=== PATIENT | female | born 1990 | race Hispanic/Latino ===

== ENCOUNTER 2016-05-31 18:44 | Emergency (ER) | payer OTHER ==
[~2016-05-31] VITALS: Ht 149.9 cm; Wt 60.3 kg
[~2016-05-31 18:44] MED LIST: AMPICILLIN TRI500 MG PO; BENTYL10 M1 PO; DICLEGIS DR 101 EACH PO; NAPROXEN375 M2 PO; NITROFURANTOIN100 M6 PO; VITAFOL ULTRA1 EACH PO; ZOFRAN ODT4 M1 SL
[2016-05-31 18:56] VITALS: BP 104/64
== END 2016-05-31 21:13 | disposition admitted as inpatient to this hospital (09) ==
LOC: ERH 18:44
DX: R11.10 Vomiting, unspecified (principal); R52 Pain, unspecified; Z33.1 Pregnant state, incidental

== ENCOUNTER 2016-09-21 01:13 | Observation (INO) | payer OTHER | END 2016-09-21 09:35 | disposition HSC | LOC: CBCO 01:13 → GNO 03:00 | PROVIDERS: ADMIT Specialist | DX: O47.1 False labor at or after 37 completed weeks of gestation (principal); Z3A.38 38 weeks gestation of pregnancy | CPT/HCPCS: 81003; 96360; G0378; G0463 ==

== ENCOUNTER 2016-09-24 18:50 | Inpatient (IN) | payer OTHER ==
[~2016-09-24] VITALS: Ht 149.9 cm; Wt 69.9 kg
[2016-09-24 23:52] LABS: ABSOLUTE BASOPHIL COUNT 0 /CUMM (0.0-0.2); ABSOLUTE EOSINOPHIL COUNT 0 /CUMM (0.0-0.7); ABSOLUTE GRANULOCYTE CT 14.6 /CUMM (1.4-6.5); BASOPHIL % 0.3 % (0.0-2.0); EOSINOPHIL % 0.1 % (0-5); HEMATOCRIT 33.8 % (37-47); MEAN CORPUSCULAR HGB 29.9 PG (27.0-31.0); MEAN CORPUSCULAR VOLUME 87.9 FL (81.0-99.0); PLATELET COUNT 171 /CUMM (130-400); RBC DISTRIBUTION WIDTH 12.7 % (11.5-14.5); RED BLOOD CELL CT 3.85 /CUMM (4.20-5.40); WHITE BLOOD CELL COUNT 17.6 /CUMM (4.8-10.8)
--- NOTE | 2016-09-25 10:36 | History & Physical ---
General Information and HPI MD Statement: I have seen and personally examined EDUIN SAEZ and documented this H &P. The patient is a 25 year old female at [39] weeks and [2] days gestation who presented with a chief complaint of [contractions]. Source of Information: patient, EMS Exam Limitations: no limitations History of Present Illness: Patient presents with a worsening contractions and pain. Describes feeling stronger contractions since last morning. She was checked at that point and found to be 2cm/90. She called overnight and was sent to be evaluated in L&D. At that time she was again found to be 2cm dilated. We decided to give her pain medication given that she was uncomfortable with everything contraction. She was able to rest comfortably. Otherwise patient has no other complaints. She denies any vaginal bleeding or LOF. Good FM since presentation. This IUP has been complicated by prior for failed induction and successful version performed earlier in (36wga). 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: Prior for failed induction (4cm) Medical History Neurological: NONE EENT: NONE Cardiovascular: NONE Respiratory: NONE Gastrointestinal: NONE Hepatic: NONE Renal: nephrolithiasis Musculoskeletal: NONE Psychiatric: NONE Endocrine: NONE Blood Disorders: NONE Cancer(s): 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 No Contractions: Q 5 min Patient for Induction? No Labs Blood Type & Rh: O+ Antibody Screen: neg Hct/Hgb & Platelets #1: 39.5/13.2/250 Hct/Hgb & Platelets #2: 34.0/11.5/182 Rubella: I VDRL #1: NR VDRL #2: NR HbsAg: NR HIV #1: NR HIV #2 NR 1 Hr P Group B Strep: neg Initial Ultrasound: unavailable Anatomy Ultrasound: Unavailable Genetic Testing: unknown Last 24 Hrs of Labs/Homar: Laboratory Tests 09/24/160: CBC w Diff NO MAN DIFF REQ, RBC 3.85 L, MCV 87.9, MCH 29.9, RDW 12.7, MPV 10.0, Gran % 83.0 H, Lymphocytes % 11.2 L, Monocytes % 5.4, Eosinophils % 0.1, Basophils % 0.3, Absolute Granulocytes 14.6 H, Absolute Lymphocytes 2.0, Absolute Monocytes 1.0 H, Absolute Eosinophils 0, Absolute Basophils 0, PUBS MCHC 34.0 09/24/162129: Urine Color YEL, Urine Clarity CLEAR, Urine pH 6.0, Ur Specific [place] 1.015, Urine Protein NEG, Urine Ketones NEG, Urine Nitrite NEG, Urine Bilirubin NEG, Urine Urobilinogen 1.0, Ur Leukocyte Esterase NEG, Ur Microscopic EXAM NOT REQUIRED, Urine Hemoglobin NEG, Urine Glucose NEG Assessment/Plan Assessment/Plan: 25 yo female here for contractions in setting of prior section. Patient was counseled extensively in the office regarding attempting a TOLAC which she was ok with when she initially presented. After pain medication and resting, her cervix did end up changing to 4 cm this morning. However despite contractions and time, her cervix has since not changed. She was given the option to continue to watch and see if she would change vs attempting to induce/augment with pitocin and seeing if she would continue to change or to send home and to have her return once contractions became even stronger vs going ahead with a repeat section if she does not want to continue with TOLAC (given her prior hx). She was told about the risk of potential uterine rupture given her prior C- section, though overall her risk would be low. She was also told that the risk of a successful vaginal delivery would diminish since she is not currently in active labor and would require pitocin to continue. She was also told about the risk of repeat and future risks with abdominal surgery. At this time she has opted to undergo a repeat as she would not like to proceed with a TOLAC (augmentation or not). She voiced understanding of all these risk and will proceed with surgery. Consents were reviewed. To OR when ready. Anesthesia, peds and OB notified. 2g of Ancef FRANCISCO J. As Ranked By This Provider Problem List: 1. 2. History of delivery affecting Core Measures/Miscellaneous Venous Thromboembolism VTE Risk Factors: / VTE Contraindications: No Contraindications VTE Diagnosis: No Beta Mary Is Beta Mary a Home Med? No Antibiotics Is Patient on Antibiotics? No
--- NOTE | 2016-09-25 12:38 | Operative Report ---
Operative/Inv Procedure Report Surgery Date: 09/25/16 Name of Procedure: Low transverse Section Pre-Operative Diagnosis: Prior Post-Operative Diagnosis: Post op Estimated Blood Loss: 700ml Surgeon/Safe Deposit Attendant: Surgeon - Dr. Erasto Bentley Safe Deposit Attendant - Dr. Lilia Hutson Anesthesia: Spinal Specimens: none Complications: none Condition: stable Operative Indication: 25 yo female with a history of prior section. Presented the night prior with cotnraction complaints. Did change to 4 cm, however did not progress past that and offered to be induced. Patient refused and instead desired repeat c- section. R/B/A were discussed and patient voiced understanding. Operative/Procedure Note Note: Procedure Details The patient was seen on L&D. The risks, benefits, complications, treatment options, and expected outcomes were discussed with the patient. The patient concurred with the proposed plan, giving informed consent. The site of surgery properly noted/marked. The patient was taken to Operating Room and the procedure verified as Delivery. A Time Out was held and the above information confirmed. After spinal placed by anesthesia, the patient was prepped and draped in the usual sterile manner while placed in a dorsal supine position with a left lateral tilt. A briggs catheter was also placed per nursing. Preoperative antibiotics were administered and an Allis test was performed yielding adequate anesthesia. A Pfannenstiel incision was made on the prior scar and carried down through the subcutaneous tissue to the fascia. Fascial incision was made and extended transversely. The fascia was grasped with Peter clamps and from the underlying rectus tissue superiorly and inferiorly. The peritoneum was identified, found to be free of adherent bowl and entered sharply. The muscle was from the midline with Metzenbaum scissors carefully. The peritoneum incision was then extended superiorly. No underlying bowel adhesions were noted. The vesico-uterine peritoneum was identified and noted to be high on the uterus. The bladder blade was inserted. The vesico-uterine peritoneum was incised transversely and the bladder flap was bluntly freed from the lower uterine segment. The bladder blade was reinserted to keep the bladder out of the operative field. A low transverse uterine incision was made with knife and extended by finger fracture. The amniotic sac was ruptured with hemostat and the was noted to be in cephalic (ROT) position. The female was brought to the incision and elevated out of the pelvis. The patient delivered a single viable female infant without difficulty. Infant with scores of 9/9 at one and five minutes respectively. After the umbilical cord was clamped and cut cord blood was obtained for evaluation. The placenta was removed intact and appeared normal and was removed spontaneously. The uterus was exteriorized. IU pitocin given. The uterine outline, tubes and ovaries appeared normal. The uterine incision was closed with running locked sutures of 0-Chromic. An extra figure of eight suture thrown at the left angle and in the midline. Methergine IM given for boggy lower uterine segment. Good hemostasis was observed. The uterus was returned to the abdominal cavity. Incision was reinspected and good hemostasis was noted. The abdominal cavity was irrigated to remove clots. The muscle was reapproximated low with 0-chromic in horizontal mattress fashion. The fascia was then reapproximated with running sutures of 0 Vicryl. The subcutaneous fat was irrigated and made hemostatic with bovie. The skin was reapproximated with 4-0 monocryl in running fashion. Instrument, sponge, and needle counts were correct prior the abdominal closure and at the conclusion of the case. Pt tolerated procedure well and Dr. Bentley discussed with family that pt was stable and in good condition after the procedure Findings: Normal uterus, tubes and ovaries. Female in cephalic presentation.
[2016-09-26 09:32] LABS: ABSOLUTE BASOPHIL COUNT 0 /CUMM (0.0-0.2); ABSOLUTE EOSINOPHIL COUNT 0 /CUMM (0.0-0.7); ABSOLUTE GRANULOCYTE CT 10.2 /CUMM (1.4-6.5); ABSOLUTE LYMPH COUNT 1.7 /CUMM (1.2-3.4); ABSOLUTE MONOCYTE COUNT 0.9 /CUMM (0.10-0.60); BASOPHIL % 0.3 % (0.0-2.0); EOSINOPHIL % 0.1 % (0-5); GRANULOCYTE % 79.5 % (42.2-75.2); HEMATOCRIT 31.8 % (37-47); MEAN CORPUSCULAR HGB 30.2 PG (27.0-31.0); MEAN CORPUSCULAR HGB CONC 33.8 G/DL (33.0-37.0); MEAN CORPUSCULAR VOLUME 89.6 FL (81.0-99.0); MEAN PLATELET VOLUME 10.3 FL (7.4-10.4); PLATELET COUNT 146 /CUMM (130-400); RBC DISTRIBUTION WIDTH 13.3 % (11.5-14.5); RED BLOOD CELL CT 3.55 /CUMM (4.20-5.40); WHITE BLOOD CELL COUNT 12.8 /CUMM (4.8-10.8)
--- NOTE | 2016-09-26 09:48 | PN- Post Delivery/GYN ---
Subjective Subjective: Overall doing well. Minimal pain, well controlled with PO meds. Tolerating PO with no nausea or vomiting. Do just removed. Did ambulate yesterday with no problems. Has not passed flatus, no BM. . Vaginal bleeding is stable. Review of Systems: per above Objective Last 24 Hrs of Vital Signs/I&O 97.8 70 20 102/60 97% Physical Exam: NAD RRR CTAB Abd: Hypoactive BS, expected TTP, ND. Fundus below umbilicus Incision: c/d/i Ext: Venodynes in place. Current Medications: Current Medications Sig/Donna Start time Last Medication Dose Route Stop Time Status Admin Acetaminophen 1,000 MG Q6H 09/25 1245 DC 09/26 N/A 1 UNIT IV 09/26 0659 0430 Cefazolin Sodium 2 GM ONCE ONE 09/25 1030 DC 09/25 N/A 1 UNIT IV 09/25 1059 1045 Citric Acid/Sodium 30 ML ONE TIME CBC 09/25 1030 DC 09/25 Citrate PO 09/25 1031 1018 Diphenhydramine HCl 25 MG Q6P PRN 09/25 1315 AC 09/26 IV 0015 Docusate Sodium 100 MG AT BEDTIME PRN 09/25 1245 AC PO Fentanyl Citrate 100 MCG .STK-MED ONE 09/25 1037 DC IM 09/25 1038 Ibuprofen 600 MG Q6P PRN 09/26 0900 AC PO Ketorolac 30 MG Q6 09/25 1800 AC 09/26 Tromethamine IV 0740 Ketorolac 30 MG ONE ONE 09/25 1145 DC 09/25 Tromethamine IV 09/25 1146 1200 Lactated Ringer's 1,000 ML Q8H 09/25 0045 AC 09/25 IV 2005 Methylergonovine 0.2 MG ONCE ONE 09/25 1245 DC 09/25 Maleate IM 09/25 1246 1134 Metoclopramide HCl 10 MG Q6P PRN 09/25 1315 AC IV Midazolam HCl 5 MG .STK-MED ONE 09/25 1038 DC IM 09/25 1039 Morphine Sulfate 10 MG .STK-MED ONE 09/25 1037 DC IV 09/25 1038 Naloxone HCl 0.2 MG .Q5 MIN PRN 09/25 1315 AC IV Oxycodone/ 1 TAB Q4P PRN 09/26 1000 AC 09/26 Acetaminophen PO 0840 Oxytocin 20 UNITS Q8H 09/25 1230 DC 09/25 Lactated Ringer's 1,000 ML IV 09/25 202 1229 Oxytocin 10 UNITS ONCE ONE 09/25 1230 DC 09/25 IM 09/25 1231 1122 Senna 187 MG AT BEDTIME NEED.. 09/25 1245 AC PO Last 24 Hrs of Labs/Homar: Laboratory Tests 09/26/16 0800: CBC w Diff NO MAN DIFF REQ, RBC 3.55 L, MCV 89.6, MCH 30.2, RDW 13.3, MPV 10.3, Gran % 79.5 H, Lymphocytes % 13.3 L, Monocytes % 6.8, Eosinophils % 0.1, Basophils % 0.3, Absolute Granulocytes 10.2 H, Absolute Lymphocytes 1.7, Absolute Monocytes 0.9 H, Absolute Eosinophils 0, Absolute Basophils 0, PUBS MCHC 33.8 Microbiology 09/25 1200 URINE ROUT: Urine Culture - RES Assessment/Plan Assessment/Plan 25 yo female POD#1 s/p rLTCS Overall doing well Will plan to transition from IV to PO meds Continue regular diet H/H noted this morning, expected drop from pre-procedure. Asymptomatic. Continue to monitor. Encourage ambulation Monitor vitals and voiding Encourage Problem List: 1. Postcesarean section Attending MD Review Statement Attending Statement Attending MD Statement: examined this patient, discussed with family, reviewed EMR data (avail), discussed with nursing
--- NOTE | 2016-09-27 13:04 | PN- Post Delivery/GYN ---
Subjective Subjective: NO COMPLAINTS Objective Last 24 Hrs of Vital Signs/I&O PER CHART Physical Exam: VSS AFEBRILE ABD BS NT FUNDUS FIRM NT LOCHIA MINIMAL INCISION CDI EXT -EDEMA -MELITON Assessment/Plan Assessment/Plan ASSESS S/P C/S PLAN CONT PPC
[2016-09-28] MEDS ORDERED: IBUPROFEN800 M1 PO (09:32)
[2016-09-28] MEDS ORDERED: PERCOCET 5-3251 EACH PO (09:32)
== END 2016-09-28 11:24 | DRG 540 ==
LOC: CBCO 18:50 → GNO 23:02 → LCXP 09-29 13:00
PROVIDERS: Obstetrics & Gynecology; ADMIT Specialist
PROC: 10D00Z1 Extraction of Products of Conception, Low, Open Approach (ICD-10-PCS; principal; 2016-09-25)
DX: O34.211 Maternal care for low transverse scar from previous cesarean delivery (principal); N85.8 Other specified noninflammatory disorders of uterus; Z3A.39 39 weeks gestation of pregnancy; Z37.0 Single live birth
CPT/HCPCS: 6050; GNOP; 36415; 81003; 87086; 96360; 96372; 96374; G0378; G0463; J0131; J0690; J1200; J1885; J2210; J7120

== ENCOUNTER 2016-10-27 19:17 | Emergency (ER) | payer OTHER ==
[~2016-10-27 19:17] MED LIST changes: +IBUPROFEN800 M1 PO; +PERCOCET 5-3251 EACH PO
[2016-10-27 19:32] VITALS: BP 112/75
--- NOTE | 2016-10-27 20:15 | ED GI/GU/ABDOMINAL COMPLAINT ---
History of Present Illness General Chief Complaint: Female Urogenital Problems Stated Complaint: " X1MTH AGO PAIN IN THE AREA,HAVE UTI" Source: patient Exam Limitations: no limitations Vital Signs & Intake/Output Vital Signs & Intake/Output Vital Signs Date Time Temp Pulse Resp B/P B/P Pulse O2 O2 Flow FiO2 Mean Ox Delivery Rate 10/28 1931 97.8 73 16 112/75 99 Room Air ED Intake and Output 10/28 0000 10/27 1200 Intake Total Output Total Balance Patient 135 lb Weight Weight Reported by Patient Measurement Method Allergies Coded Allergies: No Known Drug Allergies (NONE 09/26/16) Reconcile Medications Ciprofloxacin HCl (Cipro) 500 MG TABLET 1 TAB PO BID uti Ibuprofen 800 MG TABLET 800 MG PO Q6P PRN PAIN SCALE 4-6 (MODERATE) Ondansetron (Zofran Odt) 4 MG TAB.RAPDIS 1 TAB SL Q6P PRN NAUSEA/VOMITING Oxycodone HCl/Acetaminophen (Percocet 5-325 MG Tablet) 5 MG-325 MG TABLET 1 TAB PO Q4P PRN PAIN SCALE 4-6 (MODERATE) Pnv#67/Iron Ps/FA Cmb#1/Dha (Vitafol Ultra Softgel) 29 MG IRON-1 MG-200 MG CAPSULE 1 CAP PO DAILY (Reported) Triage Note: DX W UTI A WEEK AGO, ON ANTIBIOTICS BUT PAIN IS SPREADING FROM L SIDE ABD INTO PELVIC AREA. DENIES FLANK PAIN. REPORTS BLEEDING BUT UNSURE OF IF IT'S HER PERIOD OR URINE. HAD ONE MONTH AGO, OBGYN DR COELHO. INCISIONAL SITE HEALING WELL. SLIGHT NAUSEA, -VOMITING. POOR APPETITE. ENDORSES BURNING AND PAIN WITH URINATION Triage Nurses Notes Reviewed? yes LMP (ages 10-50): unknown (c section 1 month ago) ? n Is pt currently ? No Onset: Abrupt Duration: day(s): (3-4), better, continues in ED, getting worse Timing: recent history Quality/Severity: burning, fullness, moderate Severity Numbers: 5 Location: suprapubic, urethral Radiation: no radiation Activities at Onset: none Prior Abdominal Problems: none Past Sexual History: Unobtainable at this time Sexually Active: Yes Last Time You Were Sexual: less than 2 months ago No Modifying Factors: none Modifying Factors: Worsens With: urinating. Associated Symptoms: abdominal pain, dysuria, nausea/vomiting, urinary frequency HPI: 26-year-old female with no sign of any past medical history presents complaining of lower abdominal pain, frequency urgency, and painful urination for the past 3 or 4 days. 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 Patient was placed on Macrobid which she has been taking twice a day. Initially her symptoms were improving and had gone away completely until 3 or 4 days ago when the same pain from last week returned again. Pain is located in the suprapubic and left lower quadrant of her abdomen and does not radiate. She reports associated frequency urgency and burning with urination. She also reports increased pressure in her pelvis after urinating. She denies any fevers , back pain or vaginal discharge. She does report associated nausea without vomiting and decreased appetite.. She reports still having some vaginal bleeding from her . No chest pain, shortness of breath. (NUBIA HUDDLESTON PA-C) Past History Travel History Traveled to [place] past 21 day No Medical History Any Pertinent Medical History? 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 No (NUBIA HUDDLESTON PA-C) Review of Systems Review of Systems Constitutional: Reports: no symptoms. EENTM: Reports: no symptoms. Respiratory: Reports: no symptoms. Cardiovascular: Reports: no symptoms. GI: Reports: see HPI, abdominal pain, nausea. Genitourinary: Reports: see HPI, dysuria, frequency, urgency. Musculoskeletal: Reports: no symptoms. Skin: Reports: no symptoms. Neurological/Psychological: Reports: no symptoms. Hematologic/Endocrine: Reports: no symptoms. Immunologic/Allergic: Reports: no symptoms. All Other Systems: Reviewed and Negative (NUBIA HUDDLESTON PA-C) Physical Exam Physical Exam Gastrointestinal: normal bowel sounds, soft, no organomegaly, tenderness ( suprapubic) Comments: General: Hemodynamically stable. Afebrile. Well-developed well-nourished person in no acute distress. Head: Atraumatic, normocephalic Eyes: EOMI bilaterally, PERRLA, conjunctiva are not injected, no discharge, no nystagmus, fundus grossly normal bilaterally Nose: Atraumatic, no rhinorrhea, mucosa is not erythematous, no epistaxis. Sinuses are non-tender Ears: TM pearly domínguez color bilaterally, external canal is clear, no discharge, hearing is normal Mouth: Appropriate dentition, no gingival bleeding, moist mucus membranes, no oral lesions, tonsils not erythematous or enlarged and free of exudate. Uvula rises midline. Neck: Supple, full active ROM, no lymphadenopathy, no midline tenderness to palpation, no thyromegaly, no tracheal deviation. Back: Non-tender, full active ROM, no scoliosis, no CVA tenderness Cardiovascular: regular rate and rhythm, no murmurs, rubs, or gallops. No JVD Respiratory: Chest is nontender. Regular respiratory rate and effort. No accessory muscle use. Lungs clear to auscultation bilaterally. Extremities: No edema. No gross deformities. No joint swelling. No calf swelling or tenderness. Full active and passive ROM. Strength 5/5 in upper and lower extremities. Peripheral pulses 2+ bilaterally, Patellar DTR 2+ Neuro: No confusion. Motor and sensory function is intact. Appropriate gait. Cerebellar function intact. Skin: Warm and dry. Appropriate turgor. No lesions or bruising. No appreciable rash on exposed skin. Core Measures ACS in differential dx? No Severe Sepsis Present: No Septic Shock Present: No (KARO BOYCE,NUBIA) Progress Differential Diagnosis: appendicitis, bowel obstruction, cholecystitis, diverticulitis, inflamm bowel dis, ovarian cyst, ovarian torsion, PID/cervicitis , UTI/pyelo Plan of Care: Orders Procedure Date/time Status CULTURE,URINE 10/27 1930 Active URINALYSIS 10/27 1930 Complete Laboratory Tests 10/27/161933: Urine Color MALCOLM, Urine Clarity CLDY H, Urine pH 7.5, Ur Specific [place] 1.015, Urine Protein TRACE H, Urine Ketones NEG, Urine Nitrite NEG, Urine Bilirubin NEG, Urine Urobilinogen 4.0 H, Ur Leukocyte Esterase TRACE H, Ur Microscopic SEDIMENT EXAMINED, Urine RBC >75 H, Urine WBC 3-5 H, Ur Epithelial Cells RARE, Urine Bacteria FEW H, Urine Mucus MOD H, Urine Hemoglobin LARGE H , Urine Glucose NEG Microbiology 10/27 1933 URINE ROUT: Urine Culture - RECD Urine is showing some signs of urinary tract infection even though patient is currently on Macrobid. Patient had similar symptoms last week and was treated for a urinary tract infection and her symptoms initially got better before returning again. This may represent a resistant infection. On exam there is only mild suprapubic abdominal tenderness to palpation. Patient is afebrile and nontoxic-appearing. Macrobid will be discontinued and patient will be started on Cipro. We'll follow up on another urine culture. Discussed treatment plan with patient and she agrees. Advised her to return to the emergency department with worsening pain, fevers, vaginal bleeding or discharge, back pain or any other concerns. Patient is nontoxic appearing and afebrile at discharge. (NUBIA HUDDLESTON PA-C) Initial ED EKG: none (NUBIA HUDDLESTON PA-C) Departure Departure Disposition: HOME OR SELF CARE Condition: Stable Clinical Impression Primary Impression: UTI (urinary tract infection) Qualifiers: Urinary tract infection type: acute cystitis Hematuria presence: with hematuria Qualified Code: N30.01 - Acute cystitis with hematuria Referrals: LIANET GONZALEZ,DAVID Syed (PCP/Family) Additional Instructions: Rest and drink plenty of fluids. Alternate between Tylenol and ibuprofen every 6 hours as needed for pain. He can also use medications like Azo or Uristat to help with urinary symptoms. Stop taking Macrobid and start taking Cipro as directed for the full course. Take probiotics replace healthy bacteria. Make a follow-up woman with her ANALOG DESIGN ENGINEER doctor or primary care doctor this coming week. Monitoring her symptoms and return to the emergency department with worsening pain, fevers, back pain, no improvement in symptoms, or any other concerns. Departure Forms: Customer Survey General Discharge Information Prescriptions: Current Visit Scripts Ciprofloxacin HCl (Cipro) 1 TAB PO BID #14 TAB (NUBIA HUDDLESTON PA-C) PA/INTERNAL COMMUNICATIONS SPECIALIST Co-Sign Statement Statement: ED Attending supervision documentation- [] I saw and evaluated the patient. I have also reviewed all the pertinent lab results and diagnostic results. I agree with the findings and the plan of care as documented in the PA's/INTERNAL COMMUNICATIONS SPECIALIST's documentation. [X] I have reviewed the ED Record and agree with the PA's/INTERNAL COMMUNICATIONS SPECIALIST's documentation. [] Additions or exceptions (if any) to the PAs/INTERNAL COMMUNICATIONS SPECIALIST's note and plan are summarized below: [] (ROSS GONZALEZ,DONOVAN)
[2016-10-27] MEDS ORDERED: CIPRO500 M1 PO (20:29)
== END 2016-10-27 20:41 ==
LOC: ERH 19:17
DX: N39.0 Urinary tract infection, site not specified (principal)
CPT/HCPCS: 81001; 87086

== ENCOUNTER 2017-08-01 18:25 | Emergency (ER) | payer OTHER ==
[~2017-08-01] VITALS: Ht 149.9 cm; Wt 65.8 kg
[~2017-08-01 18:25] MED LIST changes: +AFRIN30 ML NASB; +CIPRO500 M1 PO; +CYCLOBENZAPRINE10 M1 PO; +IBUPROFEN600 M1 PO; +IMODIUM A-D2 M1 PO; +TAMIFLU75 M1 PO; +TESSALON PERLE100 M1 PO; +ZITHROMAX250 M2 PO
[2017-08-01] MEDS ORDERED: PREDNISONE50 M1 PO (20:07)
[2017-08-01] MEDS ORDERED: IBUPROFEN800 M1 PO (20:07)
[2017-08-01 20:08] VITALS: BP 117/58
[2017-08-01] MEDS ORDERED: DOXYCYCLINE HY100 M4 PO (20:08)
[2017-08-01] MEDS ORDERED: FLONASE ALLERG9.9 ML NASB (20:08)
--- NOTE | 2017-08-01 20:08 | ED INFLUENZA/URI COMPLAINT ---
History of Present Illness General Chief Complaint: Chest Pain Stated Complaint: CP/BACK PAIN FROM BRONCHITIS Source: patient Exam Limitations: no limitations Vital Signs & Intake/Output Vital Signs & Intake/Output Vital Signs Date Time Temp Pulse Resp B/P B/P Pulse O2 O2 Flow FiO2 Mean Ox Delivery Rate 08/02 2007 98.7 77 20 117/58 99 Room Air 08/01 1954 98.9 08/01 1940 97 08/01 1832 98.2 102 20 121/81 100 Room Air ED Intake and Output 08/02 0000 08/01 1200 Intake Total Output Total Balance Patient 145 lb Weight Weight Reported by Patient Measurement Method Allergies Coded Allergies: No Known Drug Allergies (NONE 09/26/16) Reconcile Medications Azithromycin (Zithromax) 250 MG TABLET 1 DP PO AD ANTIBIOTIC, INFECTION ( Reported) 2 the first day followed by 1 for days 2-5 Benzonatate (Tessalon Perle) 100 MG CAPSULE 1 CAP PO TID PRN COUGH (Reported) Cyclobenzaprine HCl 10 MG TABLET 1 TAB PO TID SPASMS Doxycycline Hyclate 100 MG TABLET 1 TAB PO BID BRONCHITIS Fluticasone Propionate (Flonase Allergy Relief) 50 MCG/ACTUATION SPRAY.SUSP 2 SPRAY NASB ONCE DAILY PRN CONGESTION Ibuprofen 800 MG TABLET 1 TAB PO TID PRN PAIN/FEVER Ibuprofen 600 MG TABLET 1 TAB PO Q6PRN PRN pain, fever with food Loperamide HCl (Imodium A-D) 2 MG TABLET 0 PO SEE ADMIN CRITERIA PRN diarrhea 1 tab after each loose stool up to 7 per day Oseltamivir Phosphate (Tamiflu) 75 MG CAPSULE 1 CAP PO BID influenza Oxycodone HCl/Acetaminophen (Percocet 5-325 MG Tablet) 5 MG-325 MG TABLET 1-2 TAB PO Q6P PRN PAIN Oxymetazoline HCl (Afrin) 0.05 % SPRAY 2 SPRAY NASB BID sinusitis Prednisone 50 MG TABLET 1 TAB PO DAILY BORNCHITIS Triage Note: PT TO ER C/C COUGH, SOB, CHEST TIGHTNESS/PAIN WITH COUGH X 5 DAYS. AFEBRILE. Triage Nurses Notes Reviewed? yes Onset: Abrupt Duration: day(s): (5), constant, continues in ED, getting worse Timing: single episode today Severity: mild, moderate Severity Numbers: 6 Prior Episodes/Possible Cause: no prior episodes No Modifying Factors: none Associated Symptoms: cough, nasal congestion, nasal drainage, shortness of breath, wheezing LMP (ages 10-50): unknown : No Patient currently breastfeeds: No HPI: 26-year-old female with no past medical history of sister admission of cough, congestion, rhinorrhea, wheezing and chest tightness. She reports symptoms started 5 days ago and have been persistent. She reports cough productive of clear sputum that is worse at night causing difficulty sleeping. She states that she saw her primary care doctor and was prescribed a prior inhaler and codeine/promethazine cough suppressant with only mild improvement. She states that when she coughs her chest feels tight. No history of asthma she does not smoke. No hemoptysis or lower carl edema noted since surgery recent trauma. No control/estrogen. No nausea vomiting diarrhea no fever. (Gildardo Chappell) Past History Travel History Traveled to [place] past 21 day No Medical History Any Pertinent Medical History? see below for history Neurological: NONE EENT: NONE Cardiovascular: NONE Respiratory: NONE Gastrointestinal: NONE Hepatic: NONE Renal: nephrolithiasis Musculoskeletal: NONE Psychiatric: NONE Endocrine: NONE Blood Disorders: NONE Cancer(s): NONE GUN STOCKER/Reproductive: NONE Surgical History Surgical History: , laparotomy Psychosocial History Who do you live with Daughter Services at Home None What is your primary language [place] Citizen Tobacco Use: Never used Family History Hx Contributory? No (Gildardo Chappell) Review of Systems Review of Systems Constitutional: Reports: no symptoms. EENTM: Reports: nasal congestion. Respiratory: Reports: see HPI, cough, short of breath, wheezing. Cardiovascular: Reports: no symptoms. GI: Reports: no symptoms. Genitourinary: Reports: no symptoms. Musculoskeletal: Reports: no symptoms. Skin: Reports: no symptoms. Neurological/Psychological: Reports: no symptoms. Hematologic/Endocrine: Reports: no symptoms. Immunologic/Allergic: Reports: no symptoms. All Other Systems: Reviewed and Negative (Gildardo Chappell) Physical Exam Physical Exam General Appearance: well developed/nourished, no apparent distress, alert, awake Head: atraumatic, normal appearance Eyes: Bilateral: normal appearance, PERRL, EOMI. Ears, Nose, Throat: moist mucous membrane, hearing grossly normal, Tympanic normal, pharynx normal, nasal congestion, nasal drainage (CLEAR) Neck: normal inspection, supple, full range of motion Respiratory: no respiratory distress, rhonchi, wheezing, CHEST WALL TENDERNESS TO PALPATION OF THE RIGHT AND LEFT CHEST. nO BRUISING SWELLING AND ABRASIONS Cardiovascular: regular rate/rhythm, normal peripheral pulses Peripheral Pulses: 2+ radial (R), 2+ radial (L) Gastrointestinal: soft, non-tender Back: normal inspection, normal range of motion, no vertebral tenderness Extremities: normal inspection, normal range of motion, no edema Neurologic/Psych: no motor/sensory deficits, awake, alert, oriented x 3, normal gait Skin: intact, normal color, warm/dry Lymphatic: no anterior cervical aracelis Core Measures Sepsis Present: No Sepsis Focused Exam Completed? No (Gildardo Chappell) Progress Differential Diagnosis: influenza, otitis, pneumonia, pharyngitis, sinusitis Plan of Care: Orders Procedure Date/time Status EKG 08/01 1826 Active Patient seen and evaluated. She is reporting cough congestion and rhinorrhea as well as wheezing and chest tightness of the past 5 days. She's USING PROAIR inhaler without much improvement. I exam she has diffuse wheezing and rhonchi. This is improved after DuoNeb. No signs of hypoxia or cyanosis. Patient will be treated for acute bronchitis with prednisone pro-air doxycycline. Advised rest, plenty of fluids Tylenol or ibuprofen. Follow-up with primary care doctor discussed return cautions patient agrees the plan. Initial ED EKG: none (Gildardo Chappell) Departure Departure Disposition: HOME OR SELF CARE Condition: Stable Clinical Impression Primary Impression: Acute bronchitis Qualifiers: Bronchitis organism: unspecified organism Qualified Code: J20.9 - Acute bronchitis, unspecified Referrals: Tata GONZALEZ,Catherine Syed (PCP/Family) Additional Instructions: Rest and drink plenty of fluids. Take antibiotics and steroids as directed for the full course. Continue to use Proventil inhaler 2 puffs every 4-6 hours as needed. Flonase for congestion. Tylenol ibuprofen for pain or fevers. Make a follow-up with YOUr primary care doctor for recheck this week. Monitor symptoms return with any concerns. Departure Forms: Customer Survey General Discharge Information Prescriptions: Current Visit Scripts Ibuprofen 1 TAB PO TID PRN PAIN/FEVER #30 TAB Prednisone 1 TAB PO DAILY #5 TAB Doxycycline Hyclate 1 TAB PO BID #14 TAB Fluticasone Propionate (Flonase Allergy Relief) 2 SPRAY NASB ONCE DAILY PRN CONGESTION #1 BOT (Gildardo Chappell) PA/PAINTER MAINTENANCE Co-Sign Statement Statement: ED Attending supervision documentation- [] I saw and evaluated the patient. I have also reviewed all the pertinent lab results and diagnostic results. I agree with the findings and the plan of care as documented in the PA's/PAINTER MAINTENANCE's documentation. [X] I have reviewed the ED Record and agree with the PA's/PAINTER MAINTENANCE's documentation. [] Additions or exceptions (if any) to the PAs/PAINTER MAINTENANCE's note and plan are summarized below: [] (Trini GONZALEZ,Yeison Keyes)
== END 2017-08-01 20:09 ==
LOC: ERH 18:25
DX: J20.9 Acute bronchitis, unspecified (principal); R07.89 Other chest pain
CPT/HCPCS: 1263